=== PATIENT | female | born 1995 | race Caucasian/White ===

== ENCOUNTER → 2018-11-21 | Outpatient (CLI) | payer BC, OTHER ==
--- NOTE | 2018-11-21 17:43 | RADIOLOGY IMAGING REPORT ---
FACILITY: [facility] PATIENT NAME: Jabari Baer : 1995 MR: [id number] V: [id number] EXAM DATE: ORDERING PHYSICIAN: BRET BENITEZ TECHNOLOGIST: Location: [facility] [place] Patient: Jabari Baer : 1995 Visit/Account:[id number] Date of Sevice: 11/21/2018 FINGER LEFT 5TH DIGIT Given history: Jammed fifth finger left hand COMPARISON STUDIES: NONE FINDINGS: Osseous structures: Intact without evidence of fracture . Joints: normal . Soft tissues: normal . IMPRESSION: Negative exam. Report Dictated By: Magdiel Fletcher MD at 11/21/2018 5:38 PM Report E-Signed By: Magdiel Fletcher MD at 11/21/2018 5:40 PM WSN:[email or web address]
== END ==
LOC: RAD 16:19
PROVIDERS: ATTEND Physician Assistant
DX: S69.92XA Unspecified injury of left wrist, hand and finger(s), initial encounter (principal)